=== PATIENT | female | born 1995 | race Caucasian/White ===

== ENCOUNTER 2017-06-30 12:22 | Emergency (ER) | payer OTHER ==
[~2017-06-30] VITALS: Ht 160 cm; Wt 53.0 kg
[~2017-06-30 12:22] MED LIST: FLOVENT110 MCG/A INH; NORE1TAB60 PO; ZITH500T PO
[2017-06-30 12:23] VITALS: BP 143/73; PULSE 80; RESP 16; TEMP 98.4; O2SAT 100
[2017-06-30] MEDS ORDERED: NORE1TAB60 PO (12:40)
--- NOTE | 2017-06-30 13:38 | PD ---
HPI Chief Complaint: Headache Time Seen by Provider: 13:35 Travel History International Travel<30 days: No Contact w/Intl Traveler<30days: No Traveled to known affect area: No History of Present Illness HPI Patient presents with complaints of right sided headache for one month. Positive photophobia. Positive nausea. Denies vomiting. Positive aura. Reports a history of migraines. Reports attempts with multiple Triptans to relieve symptoms with no success. States she has felt foggy for the last month. Denies . Last menses 3 weeks ago. Reports a negative eye exam. No further workup has been completed. [facility] Past Medical History Asthma: Yes Cardiovascular Problems: Yes (NEUROCARDIOGENIC SYNCOPE) Headaches: Yes Immunizations Current: Yes Migraines: Yes Tetanus Vaccination: Unknown ?: Not LMP: 3 WEEKS AGO Past Surgical History Surgical History: No Previous Surgery Social History Alcohol Use: Yes (OCCAS) Tobacco Use: No Substance Use: No Allergies-Medications (Allergen,Severity, Reaction): Coded Allergies: No Known Allergies (Unverified Allergy, Unknown, 06/30/17) Reported Meds & Prescriptions Reported Meds & Active Scripts Active Reported Loestrin 1/20 (Norethindrone-Ethinyl Estradiol) 1-20 Mg-Mcg Tab 1 Tab PO DAILY Review of Systems General / Constitutional: No: Fever Eyes: No: Visual changes HENT: Positive: Headaches Cardiovascular: No: Chest Pain or Discomfort Respiratory: No: Shortness of Breath Gastrointestinal: No: Abdominal Pain Genitourinary: No: Dysuria Musculoskeletal: No: Pain Skin: No Rash Neurologic: No: Weakness Psychiatric: No: Depression Endocrine: No: Polydipsia Hematologic/Lymphatic: No: Easy Bruising Physical Exam Narrative GENERAL: Well-nourished SKIN: Focused skin assessment warm/dry. HEAD: Atraumatic. Normocephalic. EYES: Pupils equal and round. No scleral icterus. No injection or drainage. ENT: No nasal bleeding or discharge. Mucous membranes pink and moist. NECK: Trachea midline. No JVD. CARDIOVASCULAR: Regular rate and rhythm. No murmur appreciated. RESPIRATORY: No accessory muscle use. Clear to auscultation. Breath sounds equal bilaterally. GASTROINTESTINAL: Abdomen soft, non-tender, nondistended. Hepatic and splenic margins not palpable. MUSCULOSKELETAL: No obvious deformities. No clubbing. No cyanosis. No edema. NEUROLOGICAL: Awake and alert. No obvious cranial nerve deficits. Motor grossly within normal limits. Normal speech. PSYCHIATRIC: Appropriate mood and affect; insight and judgment normal. Data Data Last Documented VS Vital Signs Date Time Temp Pulse Resp B/P (MAP) Pulse Ox O2 Delivery O2 Flow Rate FiO2 06/30/17 14:24 16 06/30/17 14:02 99 Room Air 06/30/17 14:01 75 06/30/17 12:23 98.4 Orders Orders Complete Blood Count With Diff (06/30/17 13:35) Comprehensive Metabolic Panel (06/30/17 13:35) W[place]gren Sedimentation Rate (06/30/17 13:35) Ct Brain W/O Iv Contrast(Rout) (06/30/17 13:35) Ecg Monitoring (06/30/17 13:35) Iv Access Insert/Monitor (06/30/17 13:35) Oximetry (06/30/17 13:35) Sodium Chloride 0.9% Flush (Ns Flush) (06/30/17 13:45) Ondansetron Inj (Zofran Inj) (06/30/17 13:45) Hydromorphone Pf Inj (Dilaudid Pf Inj) (06/30/17 13:45) Ed Urine Pregnancytest Poc (06/30/17 13:35) Hydromorphone Pf Inj (Dilaudid Pf Inj) (06/30/17 14:00) Labs Laboratory Tests Test 06/30/17 13:45 White Blood Count 7.9 TH/MM3 Red Blood Count 4.27 MIL/MM3 Hemoglobin 12.1 GM/DL Hematocrit 37.0 % Mean Corpuscular Volume 86.7 FL Mean Corpuscular Hemoglobin 28.4 PG Mean Corpuscular Hemoglobin Concent 32.7 % Red Cell Distribution Width 11.9 % Platelet Count 354 TH/MM3 Mean Platelet Volume 7.5 FL Neutrophils (%) (Auto) 58.8 % Lymphocytes (%) (Auto) 32.1 % Monocytes (%) (Auto) 6.8 % Eosinophils (%) (Auto) 1.1 % Basophils (%) (Auto) 1.2 % Neutrophils # (Auto) 4.7 TH/MM3 Lymphocytes # (Auto) 2.5 TH/MM3 Monocytes # (Auto) 0.5 TH/MM3 Eosinophils # (Auto) 0.1 TH/MM3 Basophils # (Auto) 0.1 TH/MM3 CBC Comment DIFF FINAL Differential Comment Erythrocyte Sedimentation Rate 9 mm/hr Blood Urea Nitrogen 9 MG/DL Creatinine 0.62 MG/DL Random Glucose 96 MG/DL Total Protein 7.3 GM/DL Albumin 3.6 GM/DL Calcium Level 8.5 MG/DL Alkaline Phosphatase 57 U/L Aspartate Amino Transf (AST/SGOT) 11 U/L Alanine Aminotransferase (ALT/SGPT) 14 U/L Total Bilirubin 0.3 MG/DL Sodium Level 141 MEQ/L Potassium Level 3.4 MEQ/L Chloride Level 109 MEQ/L Carbon Dioxide Level 24.0 MEQ/L Anion Gap 8 MEQ/L Estimat Glomerular Filtration Rate 118 ML/MIN [facility] Medical Decision Making Medical Screen Exam Complete: Yes Emergency Medical Condition: Yes Differential Diagnosis intractable migraine, tension headache, cluster headache Narrative Course Assessment and plan discussed with patient and mother bedside. Headache improved with medication. Last [address] 06/30/17 1335 Signed Impressions: Service Date/Time: Friday, June 30, 2017 14:05 - CONCLUSION: No acute intracranial findings. Darrel Serna MD Diagnosis Primary Impression: Migraine Qualified Codes: G43.101 - Migraine with aura, not intractable, with status migrainosus Patient Instructions: General Instructions Additional Instructions: Rest fluids and Motrin, encourage to follow-up with PCP. Return to emergency with any onset of new symptoms. Med/Other Pt SpecificInfo: No Meds Exist/No RX given Disposition: 01 DISCHARGE HOME Condition: Good Davis Navarro MD Jun 30, 2017 13:38
[2017-06-30] MEDS ORDERED: SODIUM CHLORIDE 0.9% FLUSH 10 ML FLUSH IVF PRN (13:45)
[2017-06-30] MEDS ORDERED: HYDROmorphone HCL PF 1 MG/ML VIAL IVS ONE (13:45)
[2017-06-30] MEDS ORDERED: ONDANSETRON HCL 4 MG/2 ML VIAL IVP ONE (13:45)
[2017-06-30 13:48] LABS: AUTOMATED NEUTROPHIL # 4.7 TH/MM3 (1.8-7.7); BASOPHIL # 0.1 TH/MM3 (0-0.2); BASOPHIL % 1.2 % (0.0-2.0); EOSINOPHIL # 0.1 TH/MM3 (0-0.4); EOSINOPHIL % 1.1 % (0.0-4.0); HEMO FLAGS DIFF FINAL; LYMPH % 32.1 % (9.0-44.0); LYMPHOCYTE # 2.5 TH/MM3 (1.0-4.8); MEAN CELL VOLUME 86.7 FL (80.0-100.0); MEAN CORPUSCULAR HEMOGLOBIN 28.4 PG (27.0-34.0); MEAN CORPUSCULAR HGB CONC 32.7 % (32.0-36.0); MONO % 6.8 % (0.0-8.0); NEUT % 58.8 % (16.0-70.0); PLATELET COUNT 354 TH/MM3 (150-450); RED BLOOD COUNT 4.27 MIL/MM3 (4.00-5.30); RED CELL DISTRIBUTION WIDTH 11.9 % (11.6-17.2); WHITE BLOOD COUNT 7.9 TH/MM3 (4.0-11.0)
[2017-06-30 13:59] LABS: CHLORIDE 109 MEQ/L (98-107); POTASSIUM 3.4 MEQ/L (3.5-5.1); SODIUM (NA) 141 MEQ/L (136-145)
[2017-06-30] MEDS ORDERED: HYDROmorphone HCL PF 2 MG/ML VIAL IV PUSH ONE (14:00)
[2017-06-30 14:01] VITALS: BP 113/63; PULSE 75; RESP 18; O2SAT 99
[2017-06-30 14:02] VITALS: RESP 18; O2SAT 99
[2017-06-30 14:03] LABS: ANION GAP 8 MEQ/L (5-15); BLOOD UREA NITROGEN 9 MG/DL (7-18)
[2017-06-30 14:06] LABS: ALT (GPT) 14 U/L (10-53); AST (GOT) 11 U/L (15-37); GLOMERULAR FILTRATION RATE 118 ML/MIN (>89)
[2017-06-30 14:08] LABS: TOTAL BILIRUBIN ADULT 0.3 MG/DL (0.2-1.0)
[2017-06-30 14:09] LABS: ALKALINE PHOSPHATASE 57 U/L (45-117)
--- NOTE | 2017-06-30 14:38 | RADRPT ---
EXAM DATE/TIME: 06/30/2017 14:05 [place] COMPARISON: No previous studies available for comparison. INDICATIONS : Right sided headache. RADIATION DOSE: 59.68 CTDIvol (mGy) MEDICAL HISTORY : None SURGICAL HISTORY : None. ENCOUNTER: Initial ACUITY: 1 month PAIN SCALE: 5/10 LOCATION: Right cranial TECHNIQUE: Multiple contiguous axial images were obtained of the head. Using automated exposure control and adj ustment of the mA and/or kV according to patient size, radiation dose was kept as low as reasonably a chievable to obtain optimal diagnostic quality images. DICOM format image data is available electro nically for review and comparison. FINDINGS: CEREBRUM: The ventricles are normal for age. No evidence of midline shift, mass lesion, hemorrhage or acute in farction. No extra-axial fluid collections are seen. POSTERIOR FOSSA: The cerebellum and brainstem are intact. The 4th ventricle is midline. The cerebellopontine angle i s unremarkable. EXTRACRANIAL: The visualized portion of the orbits is intact. SKULL: The calvaria is intact. No evidence of skull fracture. CONCLUSION: No acute intracranial findings. Darrel Serna MD on June 30, 2017 at 14:36 Board Certified Radiologist. This report was verified electronically.
[2017-06-30 15:05] VITALS: BP 99/55; PULSE 80; RESP 16; O2SAT 99
== END 2017-06-30 15:13 | disposition home or self-care (01) ==
LOC: PHED 12:22
DX: G43.101 Migraine with aura, not intractable, with status migrainosus (principal)
CPT/HCPCS: 70450; 80053; 84703; 85025; 85652; 96374; 96375; 99285; J1170; J2405